=== PATIENT | female | born 1935 | race Caucasian/White ===

== ENCOUNTER → 2016-09-26 | Outpatient (CLI) | payer MEDICARE, OTHER | LOC: GT 22:22 | PROVIDERS: ATTEND Family Medicine | DX: N39.0 Urinary tract infection, site not specified (principal) ==

== ENCOUNTER → 2016-10-01 | Outpatient (CLI) | payer MEDICARE, OTHER | END | disposition home or self-care (01) | LOC: GT 11:17 | PROVIDERS: ATTEND Family Medicine | DX: N39.0 Urinary tract infection, site not specified (principal); Z79.899 Other long term (current) drug therapy ==

== ENCOUNTER → 2016-10-03 | Outpatient (CLI) | payer MEDICARE, OTHER | LOC: GT 08:29 | PROVIDERS: ATTEND Family Medicine | DX: I10 Essential (primary) hypertension (principal); R48.8 Other symbolic dysfunctions; E63.9 Nutritional deficiency, unspecified; R63.0 Anorexia ==

== ENCOUNTER → 2016-10-05 | Outpatient (CLI) | payer MEDICARE, OTHER | LOC: GT 14:10 | PROVIDERS: ATTEND Family Medicine | DX: N39.0 Urinary tract infection, site not specified (principal); Z79.899 Other long term (current) drug therapy ==

== ENCOUNTER → 2016-10-08 | Outpatient (CLI) | payer MEDICARE, OTHER | LOC: GT 12:26 | PROVIDERS: ATTEND Family Medicine | DX: N39.0 Urinary tract infection, site not specified (principal); Z79.899 Other long term (current) drug therapy ==

== ENCOUNTER → 2016-10-17 | Outpatient (CLI) | payer MEDICARE, OTHER | END | disposition home or self-care (01) | LOC: GT 09:34 | PROVIDERS: ATTEND Family Medicine | DX: N39.0 Urinary tract infection, site not specified (principal) ==

== ENCOUNTER → 2016-10-31 | Outpatient (CLI) | payer MEDICARE, OTHER | END | disposition home or self-care (01) | LOC: GT 07:17 | PROVIDERS: ATTEND Family Medicine | DX: N39.0 Urinary tract infection, site not specified (principal) ==

== ENCOUNTER → 2016-11-12 | Outpatient (CLI) | payer MEDICARE, OTHER | END | disposition home or self-care (01) | LOC: GT 08:29 | PROVIDERS: ATTEND Family Medicine | DX: Z79.899 Other long term (current) drug therapy (principal); Z51.81 Encounter for therapeutic drug level monitoring ==

== ENCOUNTER → 2017-01-05 | Outpatient (CLI) | payer MEDICARE, OTHER | LOC: GT 06:16 | PROVIDERS: ATTEND Family Medicine | DX: I10 Essential (primary) hypertension (principal); E63.9 Nutritional deficiency, unspecified ==

== ENCOUNTER → 2017-03-23 | Outpatient (CLI) | payer MEDICARE, OTHER | END | disposition home or self-care (01) | LOC: GT 06:04 | PROVIDERS: ATTEND Family Medicine | DX: D64.9 Anemia, unspecified (principal); I10 Essential (primary) hypertension ==

== ENCOUNTER → 2017-03-27 | Outpatient (CLI) | payer MEDICARE, OTHER | END | disposition home or self-care (01) | LOC: GT 20:26 | PROVIDERS: ATTEND Family Medicine | DX: N39.0 Urinary tract infection, site not specified (principal) ==

== ENCOUNTER → 2017-06-26 | Outpatient (CLI) | payer MEDICARE, OTHER | END | disposition home or self-care (01) | LOC: GT 09:47 | PROVIDERS: ATTEND Family Medicine | DX: J11.2 Influenza due to unidentified influenza virus with gastrointestinal manifestations (principal) ==

== ENCOUNTER → 2017-07-03 | Outpatient (CLI) | payer MEDICARE, OTHER | END | disposition home or self-care (01) | LOC: GT 06:19 | PROVIDERS: ATTEND Family Medicine | DX: E63.9 Nutritional deficiency, unspecified (principal); I10 Essential (primary) hypertension; D64.9 Anemia, unspecified; R63.0 Anorexia; R41.81 Age-related cognitive decline; K58.9 Irritable bowel syndrome, unspecified | CPT/HCPCS: 36415; 80053; 80061; 85025; P9603 ==

== ENCOUNTER → 2017-10-02 | Outpatient (CLI) | payer MEDICARE, OTHER | LOC: GT 06:46 | PROVIDERS: ATTEND Family Medicine | DX: D53.9 Nutritional anemia, unspecified (principal); M62.50 Muscle wasting and atrophy, not elsewhere classified, unspecified site; F33.3 Major depressive disorder, recurrent, severe with psychotic symptoms; I10 Essential (primary) hypertension | CPT/HCPCS: 36415; 80048; 80061; 84443; 85025; P9603 ==

== ENCOUNTER 2018-07-08 08:23 | Emergency (ER) | payer MEDICARE, OTHER, MEDICAID ==
--- NOTE | 2018-07-08 09:14 | ED.PDOC ---
History of Present Illness - General Chief Complaint: GI Problem Stated Complaint: vomiting,lethargy Time Seen by Provider: 07/08/18 08:25 Source: family, EMS, [facility] records Exam Limitations: physical impairment - dementia - History of Present Illness Initial Comments: Patient presents from [place] with N/V/D for three days. Diarrhea is non-bloody. Her daughter reports that she had a temperature of 99.0 axillary two days ago. Her alertness has decreased from her baseline. The patient complains of abdominal pain only when I press on it. No other history is available. No known cardiac history. No DM. Timing/Duration: other - 3 days Severity: moderate Improving Factors: nothing Worsening Factors: nothing Associated Symptoms: other - see HPI Allergies/Adverse Reactions: Allergies NO KNOWN ALLERGY Allergy (Verified 03/09/16 04:31) Home Medications: Ambulatory Orders Acetaminophen [Tylenol] 1,000 mg PO Q8H PRN 02/29/16 Aripiprazole [Abilify] 10 mg PO BEDTIME 02/29/16 Ascorbic Acid [Vitamin C] 500 mg PO DAILY 02/29/16 Hydroxychloroquine Sulfate [Hydroxychloroquine Sulfat] 200 mg PO BID 02/29/16 Lisinopril [Zestril] 10 mg PO DAILY 02/29/16 Lubiprostone [Amitiza] 8 mcg PO DAILY 02/29/16 Multiple Vitamin [Multivitamins] 1 cap PO DAILY 02/29/16 Nitrofurantoin Macrocrystal [Macrodantin] 50 mg PO BEDTIME 02/29/16 Potassium Chloride [Micro-K] 10 meq PO TID 02/29/16 Sertraline HCl [Zoloft] 50 mg PO DAILY 02/29/16 raNITIdine HCL [Zantac] 150 mg PO BEDTIME 02/29/16 Buspirone HCl 5 mg PO TID 07/08/18 Fluconazole [Diflucan Tab] 150 mg PO ., OF MONTH 07/08/18 HYDROcodone 5MG/APAP 325MG [[place] 5/325] 1 tab PO Q6H PRN 07/08/18 HYDROcodone 5MG/APAP 325MG [[place] 5/325] 1 tab PO TID 07/08/18 Lactobacillus [Acidophilus] 1 cap PO DAILY 07/08/18 Magnesium Hydroxide [Milk Of Magnesia] 30 ml PO DAILY PRN 07/08/18 guaiFENesin/DEXTROMETH SYRUP [Robitussin Dm] 10 ml PO Q8H PRN 07/08/18 Review of Systems - Review of Systems Respiratory: States: other - congestion Gastrointestinal/Abdominal: States: nausea, vomiting Unable to Obtain Due To: dementia Past Medical History (General) - Patient Medical History Hx Seizures: No Hx Stroke: No Hx Dementia: Yes Hx Asthma: No Hx of COPD: No Hx Cardiac Disorders: No Hx Congestive Heart Failure: No Hx Pacemaker: No Hx Hypertension: Yes Hx Thyroid Disease: No Hx Diabetes: No Hx Gastroesophageal Reflux: Yes Hx Renal Disease: No Hx Cancer: No Hx of HIV: No Hx Hepatitis C: No Hx MRSA: No Surgical History: noncontributory - Vaccination History Hx Tetanus, Diphtheria Vaccination: No Hx Influenza Vaccination: No Hx Pneumococcal Vaccination: No - Social History Hx Tobacco Use: No Hx Alcohol Use: No Hx Substance Use: No Hx Substance Use Treatment: No Hx Depression: Yes Hx Physical Abuse: No Hx Emotional Abuse: No Hx Suspected Abuse: No - Activities of Daily Living [facility]Assisted Living (if applicable):: [facility] - Female History Patient : No Family Medical History - Family History Mother Family History: Unknown Living Status: Physical Exam - Physical Exam General Appearance: Frail, Lethargic Eye Exam: bilateral normal Ears, Nose, Throat: normal ENT inspection Neck: non-tender, full range of motion, supple Respiratory: lungs clear, normal breath sounds Cardiovascular/Chest: normal peripheral pulses, regular rate, rhythm Gastrointestinal/Abdominal: normal bowel sounds, soft, tenderness - diffuse TTP, no guarding Back Exam: normal inspection, no CVA tenderness Neurologic: other - unable to test due to dementia. Patient cannot cooperate. Skin Exam: normal color Lymphatic: no adenopathy Progress - Progress Progress: 07/08/18 10:39 Laboratory Tests 07/08/18 07/08/18 07/08/18 08:40 08:40 08:40 WBC 15.2 H RBC 3.63 L Hgb 13.1 Hct 39.5 MCV 108.7 H MCH 36.0 H MCHC 33.1 RDW 15.9 H Plt Count 276 MPV 8.5 Absolute Neuts (auto) 13.50 H Absolute Lymphs (auto) 0.90 L Absolute Monos (auto) 0.80 Absolute Eos (auto) 0.00 Absolute Basos (auto) 0.00 Neutrophils % 88.2 H Lymphocytes % 6.1 L Monocytes % 5.4 Eosinophils % 0.0 L Basophils % 0.3 Normal RBC Morphology Plts rani adequate pCO2 pO2 HCO3 ABG pH ABG O2 Saturation ABG Base Excess ABG Deoxyhemoglobin Oxyhemoglobin % Carboxyhemoglobin % Methemoglobin % Sat Calc Total Hemoglobin Sodium 145 Potassium 6.0 H Chloride 113 H Carbon Dioxide 13 L* Anion Gap 25.0 H BUN 101 H* Creatinine 5.75 H BUN/Creatinine Ratio 17.6 Random Glucose 123 H Serum Osmolality 321.6 H Calcium 8.7 Total Bilirubin 0.3 AST 28 ALT 19 Alkaline Phosphatase 105 Creatine Kinase 867 H* CK-MB (CK-2) 16.4 H* CK-MB (CK-2) % 1.89 Troponin I 0.24 H* B-Natriuretic Peptide Serum Total Protein 6.6 Albumin 3.2 Globulin 3.4 Albumin/Globulin Ratio 0.9 L Lipase 25 Urine Color Urine Appearance Urine pH Ur Specific [place] Urine Protein Urine Glucose (UA) Urine Ketones Urine Blood Urine Nitrite Urine Bilirubin Urine Urobilinogen Ur Leukocyte Esterase Urine RBC Urine WBC Ur Epithelial Cells Urine Bacteria Group A Strep Rapid 07/08/18 07/08/18 07/08/18 08:40 09:15 09:15 WBC RBC Hgb Hct MCV MCH MCHC RDW Plt Count MPV Absolute Neuts (auto) Absolute Lymphs (auto) Absolute Monos (auto) Absolute Eos (auto) Absolute Basos (auto) Neutrophils % Lymphocytes % Monocytes % Eosinophils % Basophils % Normal RBC Morphology pCO2 pO2 HCO3 ABG pH ABG O2 Saturation ABG Base Excess ABG Deoxyhemoglobin Oxyhemoglobin % Carboxyhemoglobin % Methemoglobin % Sat Calc Total Hemoglobin Sodium Potassium Chloride Carbon Dioxide Anion Gap BUN Creatinine BUN/Creatinine Ratio Random Glucose Serum Osmolality Calcium Total Bilirubin AST ALT Alkaline Phosphatase Creatine Kinase CK-MB (CK-2) CK-MB (CK-2) % Troponin I B-Natriuretic Peptide 328.0 H* Serum Total Protein Albumin Globulin Albumin/Globulin Ratio Lipase Urine Color Brown H Urine Appearance Turbid Urine pH 5.0 Ur Specific [place] >= 1.030 Urine Protein 100 H Urine Glucose (UA) Negative Urine Ketones 15 H Urine Blood Moderate H Urine Nitrite Negative Urine Bilirubin Moderate Urine Urobilinogen 0.2 Ur Leukocyte Esterase Small H Urine RBC Tntc H Urine WBC Obscured by rbc's H Ur Epithelial Cells 0 Urine Bacteria 1+ Group A Strep Rapid Negative 07/08/18 10:04 WBC RBC Hgb Hct MCV MCH MCHC RDW Plt Count MPV Absolute Neuts (auto) Absolute Lymphs (auto) Absolute Monos (auto) Absolute Eos (auto) Absolute Basos (auto) Neutrophils % Lymphocytes % Monocytes % Eosinophils % Basophils % Normal RBC Morphology pCO2 29 L pO2 83 HCO3 12.1 ABG pH 7.250 L* ABG O2 Saturation 94.5 L ABG Base Excess -13.6 ABG Deoxyhemoglobin 5.3 H Oxyhemoglobin % 92.6 L Carboxyhemoglobin % -0.4 L Methemoglobin % Sat 2.5 H Calc Total Hemoglobin 11.1 L Sodium Potassium Chloride Carbon Dioxide Anion Gap BUN Creatinine BUN/Creatinine Ratio Random Glucose Serum Osmolality Calcium Total Bilirubin AST ALT Alkaline Phosphatase Creatine Kinase CK-MB (CK-2) CK-MB (CK-2) % Troponin I B-Natriuretic Peptide Serum Total Protein Albumin Globulin Albumin/Globulin Ratio Lipase Urine Color Urine Appearance Urine pH Ur Specific [place] Urine Protein Urine Glucose (UA) Urine Ketones Urine Blood Urine Nitrite Urine Bilirubin Urine Urobilinogen Ur Leukocyte Esterase Urine RBC Urine WBC Ur Epithelial Cells Urine Bacteria Group A Strep Rapid Oxygen saturations were in the low 80s. Patient started on non-rebreather. wbc 15.2. CXR showed RLL pneumonia. UA showed UTI. Troponin 0.25. EKG read by me showed NSR with no acute ST changes nor T wave elevations. No LBBB. ABG showed pH of 7.25. Renal function tests elevated. Patient likely is in septic shock. Given serial boluses of NS one liter IV. ASA 325 mg supp x one for the cardiac issue. However, this is likely cardiac sweat secondary to the increased lung resistance caused by the pneumonia. Patient given Rocephin 1 gram IV and Azithromycin 500 mg IV x one for the pneumonia and UTI considering the therapeutic advantage of the combination. Blood cultures taken and sent before antibiotics started. Patient's daughters were here. Care plan was given. Questions were elicited and answered. The patient's family voiced understanding and agreement with the plan. Patient transferred to [facility] in [place]. 07/08/18 10:46 Departure - Departure Clinical Impression: Pneumonia, UTI (urinary tract infection), Septic shock, Gastroenteritis, Elevated troponin, Hypoxia Disposition: Transfer to Hospital Condition: Serious Departure Forms: ED Discharge - Pt. Copy, Patient Portal Self Enrollment Activity: other - NPO Referrals: SAMPSON CABRERA [Primary Care Provider] - 1-2 Weeks Home Medications: Ambulatory Orders Acetaminophen [Tylenol] 1,000 mg PO Q8H PRN 02/29/16 Aripiprazole [Abilify] 10 mg PO BEDTIME 02/29/16 Ascorbic Acid [Vitamin C] 500 mg PO DAILY 02/29/16 Hydroxychloroquine Sulfate [Hydroxychloroquine Sulfat] 200 mg PO BID 02/29/16 Lisinopril [Zestril] 10 mg PO DAILY 02/29/16 Lubiprostone [Amitiza] 8 mcg PO DAILY 02/29/16 Multiple Vitamin [Multivitamins] 1 cap PO DAILY 02/29/16 Nitrofurantoin Macrocrystal [Macrodantin] 50 mg PO BEDTIME 02/29/16 Potassium Chloride [Micro-K] 10 meq PO TID 02/29/16 Sertraline HCl [Zoloft] 50 mg PO DAILY 02/29/16 raNITIdine HCL [Zantac] 150 mg PO BEDTIME 02/29/16 Buspirone HCl 5 mg PO TID 07/08/18 Fluconazole [Diflucan Tab] 150 mg PO . OF 07/08/18 HYDROcodone 5MG/APAP 325MG [[place] 5/325] 1 tab PO Q6H PRN 07/08/18 HYDROcodone 5MG/APAP 325MG [[place] 5/325] 1 tab PO TID 07/08/18 Lactobacillus [Acidophilus] 1 cap PO DAILY 07/08/18 Magnesium Hydroxide [Milk Of Magnesia] 30 ml PO DAILY PRN 07/08/18 guaiFENesin/DEXTROMETH SYRUP [Robitussin Dm] 10 ml PO Q8H PRN 07/08/18
[2018-07-08] MEDS ORDERED: SODIUM CHLORIDE 0.9% 1000ML 1,000 ML IVS PRN (09:22)
[2018-07-08] MEDS ORDERED: IPRATROPIUM/ALBUTEROL 3 ML VIAL NEB ONE (09:33)
--- NOTE | 2018-07-08 09:36 | RAD ---
EXAM DESCRIPTION: Chest,1 View CLINICAL HISTORY: 83 years Female, congestion COMPARISON: None. TECHNIQUE: AP portable chest. FINDINGS: Moderately large area of parenchymal consolidation medial right lung base. No effusion. Left lung clear. Heart normal size. Severe scoliosis. IMPRESSION: Right lower lobe pneumonia. Radiographic follow-up until clear. Electronically signed by: Robert Caro MD 07/08/2018 9:35 AM [employer]
[2018-07-08] MEDS ORDERED: cefTRIAXone SODIUM 1 GM in SODIUM CHL 0.9% 50ML MIN-BAG+ 50 ML IVPB ONE (09:50)
[2018-07-08] MEDS ORDERED: cefTRIAXone SODIUM 1 GM VIAL ONE (09:51)
[2018-07-08] MEDS ORDERED: AZITHROMYCIN IV 500 MG in SODIUM CHLORIDE 0.9% 250ML 250 ML IVPB ONE (09:51)
[2018-07-08] MEDS ORDERED: SODIUM CHL 0.9% 50ML MIN-BAG+ 50 ML IVPB ONE (09:52)
[2018-07-08] MEDS: ASPIRIN (CHEWABLE) 81 MG TAB PO ONE ×2 (10:00→10:44)
[2018-07-08] MEDS ORDERED: ASPIRIN SUPP 600 MG SUP PR ONE ×2 (10:22→10:23)
[2018-07-08] MEDS ORDERED: AZITHROMYCIN IV 500 MG VIAL IVPB ONE (10:38)
[2018-07-08] MEDS ORDERED: SODIUM CHLORIDE 0.9% 250ML 250 ML ONE (10:39)
[2018-07-08] MEDS ORDERED: ONDANSETRON INJ 4 MG/2 ML VIAL IV ONE (10:47)
[2018-07-08 11:05] VITALS: BP 94/65; TEMP 96.5; O2SAT 97
== END 2018-07-08 11:05 | disposition short-term general hospital (02) ==
LOC: ER 08:23
DX: R65.21 Severe sepsis with septic shock (principal); J18.9 Pneumonia, unspecified organism; N39.0 Urinary tract infection, site not specified; K52.9 Noninfective gastroenteritis and colitis, unspecified; R79.89 Other specified abnormal findings of blood chemistry; R09.02 Hypoxemia; F32.9 Major depressive disorder, single episode, unspecified; F03.90 Unspecified dementia, unspecified severity, without behavioral disturbance, psychotic disturbance, mood disturbance, and anxiety; I10 Essential (primary) hypertension; K21.9 Gastro-esophageal reflux disease without esophagitis; Z79.899 Other long term (current) drug therapy
CPT/HCPCS: 36415; 36600; 71045; 80053; 81001; 82550; 82553; 82803; 82805; 83605; 83690; 83880; 84484; 85025; 87040; 87070; 87077; 87086; 87186; 87502; 87880; 93005; 94640; J0456; J0696; J2405; J7030; J7050; J7620